=== PATIENT | female | born 1985 | race Asian ===

== ENCOUNTER 2023-03-22 23:02 | Emergency (ER) | payer MEDICAID, SELFPAY ==
[2023-03-22 23:03] VITALS: BP 124/68; PULSE 84; RESP 18; TEMP 36.6; O2SAT 96; BMI 26.5
[2023-03-22 23:40] LABS: IDNOW Serial# 6674DD1D; Strep A Nucleic Acid Negative (Negative)
[2023-03-23 00:11] LABS: Influenza A PCR POSITIVE (Negative); Influenza B PCR NEGATIVE (Negative); Resp Syncy Virus RNA Qual PCR NEGATIVE (Negative); SARS COV2 PCR INHOUSE NEGATIVE (Negative)
--- NOTE | 2023-03-23 01:10 | ED.GENADULT ---
HPI - General Adult General Chief complaint: Upper Respiratory Symptoms Stated complaint: Sore throat/Fever Time Seen by Provider: 03/23/23 01:04 Source: patient, RN notes reviewed and old records reviewed Mode of arrival: ambulatory Limitations: no limitations History of Present Illness HPI narrative: 37-year-old female presents for evaluation of a sore throat, body aches and cough. Patient reports her symptoms started 5 days ago on [place] Her son is here with similar symptoms Denies any other sick contacts or recent travel Related Data Allergies Allergy/AdvReac Type Severity Reaction Status Date / Time No Known Allergies Allergy Verified 03/22/23 23:08 [No Known Allergies*] Review of Systems Constitutional: Constitutional: Denies chills, Denies fever(s) and Reports malaise ENT: Reports sore throat Cardiovascular: Cardiovascular: Denies chest pain and Denies dyspnea Respiratory: Respiratory: Reports cough and Denies dyspnea Musculoskeletal: Musculoskeletal: Reports myalgias and Reports muscle weakness Integumentary/Breasts: Skin/Breast: Denies rash Physical Exam ED Vital Signs: Vital Signs - 24 hr 03/22/23 23:03 Temperature 97.8 F Pulse Rate 84 Respiratory Rate 18 Blood Pressure 124/68 Pulse Oximetry 96 Oxygen Delivery Method Room Air BMI result Body Mass Index 26.5 Const General: healthy appearing, comfortable, no acute distress, alert and awake Nutritional Appearance: well nourished Orientation/consciousness: patient oriented x3 HENMT Head: Yes normocephalic and Yes atraumatic Throat: Yes posterior oropharynx normal Eyes Eyelids: Yes eyelids normal Conjunctivae: conjunctivae normal Sclerae: sclerae normal Corneas: corneas normal Pupils: Equal, round and reactive pupils present EOM: EOMs intact bilaterally Neck Neck: Yes full ROM Resp Effort & Inspection: normal respiratory effort, able to speak in complete sentences and not labored Skin General skin exam: no rashes or lesions noted and elasticity normal Neuro General: patient oriented x3 Cranial nerves: Yes Equal, round and reactive pupils present and Yes Bilaterally intact EOM present Cognition (Neuro): normal cognition Extrem Other: Moving all extremities well without any obvious deformities Medical Decision Making Medical Decision Making MDM Narrative: 37-year-old healthy female presents for evaluation of flu-like symptoms. She has a sore throat, no evidence of peritonsillar abscess. She tested positive for influenza a, negative for strep throat. She is outside the window for Tamiflu treatment, we will treat symptomatically only Differential Diagnosis Differential Diagnoses: The differential diagnosis associated with the presentation includes Influenza Viral syndrome Strep throat Pharyngitis Lab Data Labs: Lab Results 03/22/23 Range/Units 23:23 Influenza Type A (PCR) POSITIVE A (Negative) Influenza Type B (PCR) NEGATIVE (Negative) RSV RNA Qual (PCR) NEGATIVE (Negative) SARS-CoV-2 RNA (RT-PCR) NEGATIVE (Negative) S. pyogenes GrpA DEBORAH Negative (Negative) Discharge Plan Discharge Clinical Impression: Influenza A Patient Disposition: Home, Self-Care Instructions: Influenza (ED) Additional Instructions: You tested positive for the flu. Unfortunately your outside of the window for antiviral treatment with Tamiflu Use Motrin and/or Tylenol for pain Drink lots of fluids Follow-up with your primary doctor Return for new or worsening symptoms Stand Alone Forms: Work/School Release
== END 2023-03-23 01:22 | disposition home or self-care (01) ==
PROVIDERS: Emergency Provider Internal Medicine
DX: J10.1 Influenza due to other identified influenza virus with other respiratory manifestations (principal); Z20.822 Contact with and (suspected) exposure to COVID-19; Z20.828 Contact with and (suspected) exposure to other viral communicable diseases
CPT/HCPCS: 0241U; 87651; 99282; 99283

== ENCOUNTER 2023-08-07 09:17 | Outpatient (AMB) | payer MEDICAID, SELFPAY ==
[2023-08-07 09:20] VITALS: BP 118/62; PULSE 60; O2SAT 98; BMI 27.0
--- NOTE | 2023-08-07 09:20 | A.OFFVIS_ITS ---
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 She has been getting chest pains off and on for quite sometime. Very brief duration. Can happen when she is lying down in bed extra. Stabbing sensation. No exertional patterns. No known cardiac history. Otherwise fairly healthy. Daughter has Brugada syndrome which was apparently diagnosed when she developed chest pain. She is being seen at [place]. Unknown Genetics. [facility] Family History Daughter Brugada syndrome Social History Alcohol intake: current Alcohol intake frequency: holidays/special occasions only Patient Tobacco Use Status: Never used Tobacco Review of Systems Const Denies weakness ENT Denies dizziness Card Denies chest pain, Denies chest pain with activity, Denies syncope, Denies rapid heart rate, Denies pedal edema, Denies edema, Denies leg edema, Denies lightheadedness, Denies palpitations, Denies dyspnea, Denies dyspnea on exertion and Denies orthopnea Resp Denies cough, Denies dyspnea and Denies dyspnea on exertion GI Denies hematochezia and Denies change in stool character Musc Denies abnormal gait, Denies muscle cramps, Denies muscle weakness, Denies numbness, Denies radiating pain into limb and Denies tingling Neuro Denies abnormal gait, Denies dizziness, Denies syncope, Denies numbness, Denies tingling and Denies weakness Endo Denies palpitations Physical Exam Vital Signs: Last Vital Signs Pulse 60 08/07/23 09:20 BP 118/62 08/07/23 09:20 Pulse Ox 98 08/07/23 09:20 Oxygen Delivery Method Room Air 08/07/23 09:20 BMI result Body Mass Index 27.0 Const General: comfortable and no acute distress Orientation/consciousness: patient oriented x3 HEENT Other: Unremarkable Head: Yes normal to inspection Neck Neck: Yes normal visual inspection Chest Chest palpation & inspection: normal inspection of the chest Resp Auscultation: clear to auscultation bilaterally Cardio Palpation: normal PMI Heart sounds: S1 normal heart sound present, S2 normal heart sound present, no gallops, no murmurs and no rubs GI Palpation (GI): Soft to palpation Back/Spine/Pelvis Other: unremarkable Skin General skin exam: no rashes or lesions noted Neuro General: patient oriented x3 Extrem General: Yes normal to inspection Psych Mental Status: mental status grossly normal Office Procedures EKG Details: EKG with sinus rhythm at 60/Min; sinus arrhythmias; no significant ST-T changes and otherwise unremarkable. [place] [id number], Complete Assessment & Plan Assessment & Plan (1) Precordial chest pain: Code(s): R07.2 - Precordial pain Category: Medical Plan Atypical sounding chest pain. Unremarkable resting EKG. Family history of Brugada syndrome and daughter. We will get an echocardiogram for cardiac function assessment. Ask patient to find out if Genetics was done in daughter and if anything positive. If that is positive, then patient may also need to be screened. Follow-up after the above. Orders: Orders CA echo transthoracic complete Today R07.2 - Precordial pain Coding Level of Care Code New Pt Level 3 (37822) Diagnoses Precordial chest pain R07.2 CPT Codes EKG - CPT: 62455-[id number], Complete ([id number])
== END 2023-08-07 09:45 | disposition home or self-care (01) ==
PROVIDERS: PCP Registered Nurse; Visit Provider Internal Medicine
DX: R07.2 Precordial pain (principal)
CPT/HCPCS: 93010; 99203

== ENCOUNTER → 2023-08-07 09:17 | Outpatient (BNVA) | payer MEDICAID, SELFPAY | PROVIDERS: Visit Provider Internal Medicine | DX: R07.2 Precordial pain (principal) | CPT/HCPCS: 93005; 99202 ==

== ENCOUNTER → 2023-08-31 08:28 | Outpatient (REF) | payer MEDICAID, SELFPAY ==
--- NOTE | 2023-08-31 08:32 | CA_ITS ---
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 The calculated ejection fraction is 67% by biplane method. - No obvious valvular pathology seen on this study. Findings Left Ventricle Normal left ventricular cavity size. There is normal left ventricular wall thickness. The left ventricular systolic function is normal. The calculated ejection fraction is 67% by biplane method. There is no evidence of regional wall motion abnormalities. Diastolic function is normal for age. LV peak 23.2%. Right Ventricle Normal right ventricular cavity size and systolic function. Atria Both atria are normal in size. Aortic Valve There is a normal trileaflet aortic valve. There is no aortic valve stenosis. There is no aortic valve regurgitation. Mitral Valve The mitral valve appears normal. There is no mitral valve regurgitation. There is no mitral valve stenosis. Pulmonic Valve The pulmonic valve is likely normal. Tricuspid Valve Normal tricuspid valve structure. There is trace tricuspid valve regurgitation. There is no evidence of pulmonary hypertension. Great Vessels The asc aorta is normal in size. Venous The inferior vena cava is normal in size and collapses greater than 50% with inspiration. Pericardium/Pleural There is no evidence of pericardial effusion. Prior Study Comparison No prior study available for comparison. Recommendations, Care & Conclusions No obvious valvular pathology seen on this study. Measurements 2D Linear Measurements IVSd: 0.71 0.6-0.9/0.6-1.0 cm LVIDd: 4.32 3.9-5.3/4.2-5.9 cm LVIDd Index: 2.59 2.4-3.2/2.2-3.1 cm/m2 LVIDs: 2.58 2.0-3.6 cm LVPWd: 0.83 0.7-1.1 cm LA Diam: 2.90 2.7-3.8/3.0-4.0 cm LAIDs Index: 1.74 1.5-2.3 cm/m2 LV Mass: 125.65 67-162/88-224 g LV Mass Index: 75.24 43-95/49-115 g/m2 LVOT Diam: 1.90 3.0+(-)1.3 cm 2D Systolic Function EF 4C: 68.60 >55% EF 2C: 64.30 >55% EF BiP: 66.90 >55% Mitral Valve MV Pk E: 0.74 MV PK A: 0.36 MV Decel Time: 258.00 E/A: 2.00 E'Lateral: 14.30 E'Medial: 11.60 E/E' Med: 6.40 E/E' Lat: 5.20 PHT: 76.00 MVA PHT: 2.89 Decel [place]: 2.86 Aortic Valve AoV Pk Seth: 1.33 AoV Mn Seth: 0.85 AoV VTI: 0.28 AoV Pk Grad: 7.00 Aov Mn Grad: 3.00 SANGEETHA Cont.VTI: 2.14 LVOT LVOT Pk Seth: 0.94 LVOT Mn Seth: 0.62 LVOT VTI: 0.21 LVOT Pk Grad: 4.00 LVOT Mn Grad: 2.00 LVOT Diam: 1.90 LVOT Area: 2.84 Diastolic Function MV Pk E: 0.74 MV Pk A: 0.36 E/A: 2.00 E'Medial: 11.60 E/E' Med: 6.40 E' Laterial: 14.30 E/E' Lat: 5.20 Right Ventricle TAPSE (mm): 22.70 TVS' Seth: 10.80 Tricuspid Valve RA Press: 3.00 Great Vessels Aorta Sinus of Valsalva: 2.38 2.0-3.5 cm Ao Asc: 2.50 2.1-3.4 cm Ao Arch: 2.10 Updated in Other Vendor System with Status of Final Roger Lee MD electronically signed on 09/02/2023 10:45:11 AM with status of Final
== END ==
LOC: HO.CARD 08:28
PROVIDERS: Visit Provider Internal Medicine
DX: R07.2 Precordial pain (principal)
CPT/HCPCS: 93306; 93356

== ENCOUNTER → 2023-08-31 08:32 | Outpatient (BNV) | payer MEDICAID, SELFPAY | PROVIDERS: Visit Provider Internal Medicine | DX: R07.2 Precordial pain (principal) | CPT/HCPCS: 93306 ==

== ENCOUNTER 2023-11-08 08:47 | Outpatient (AMB) | payer MEDICAID, SELFPAY ==
[2023-11-08 08:49] VITALS: BP 104/54; PULSE 70; BMI 28.2
--- NOTE | 2023-11-08 08:49 | MHC.OFFVIS ---
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 Recently seen in consultation regarding chest pains. Random chest pains but nonexertional. No specific patterns. Recently, somewhat improved spontaneously. Otherwise, quite healthy. Daughter has Brugada syndrome which was apparently diagnosed when she developed chest pain. She is being seen at [place]. Unknown Genetics. [facility] Family History Daughter Brugada syndrome Social History Alcohol intake: current Alcohol intake frequency: holidays/special occasions only Patient Tobacco Use Status: Never used Tobacco Review of Systems Const Denies chills, Denies fatigue, Denies fever(s), Denies weight gain and Denies weight loss ENT Denies dizziness Card Denies chest pain, Denies leg edema, Denies lightheadedness, Denies palpitations, Denies dyspnea on exertion, Denies orthopnea and Denies other Resp Denies cough and Denies dyspnea on exertion GI Denies hematochezia and Denies change in stool character Musc Denies abnormal gait, Denies muscle weakness, Denies numbness, Denies radiating pain into limb and Denies tingling Neuro Denies abnormal gait, Denies dizziness, Denies numbness and Denies tingling Endo Denies fatigue and Denies palpitations Physical Exam Vital Signs: Last Vital Signs Pulse 70 11/08/23 08:49 BP 104/54 L 11/08/23 08:49 BMI result Body Mass Index 28.2 Const General: comfortable and no acute distress Orientation/consciousness: patient oriented x3 HEENT Other: Unremarkable Head: Yes normal to inspection Neck Neck: Yes normal visual inspection Chest Chest palpation & inspection: normal inspection of the chest Resp Auscultation: clear to auscultation bilaterally Cardio Palpation: normal PMI Heart sounds: S1 normal heart sound present, S2 normal heart sound present, no gallops, no murmurs and no rubs GI Palpation (GI): Soft to palpation Back/Spine/Pelvis Other: unremarkable Skin General skin exam: no rashes or lesions noted Neuro General: patient oriented x3 Extrem General: Yes normal to inspection Psych Mental Status: mental status grossly normal Assessment & Plan Assessment & Plan (1) Precordial chest pain: Code(s): R07.2 - Precordial pain Category: Medical Plan Baseline EKGs within normal limits. Echocardiogram shows normal LVEF and no significant structural abnormalities. Normal peak global longitudinal strain. Discussed with regarding implications of family history of Brugada. As patient's EKG is completely normal, he felt there is no need for any further testing or other interventions. Reassurance only. Also unclear if Genetics will be of any help. Any case, advised patient to bring her daughter's genetic panel. If it is indeed positive for certain gene, then consider genetics referral. Coding Level of Care Code Est Pt Level 3 (46194) Diagnoses Precordial chest pain R07.2
== END 2023-11-08 09:58 | disposition home or self-care (01) ==
PROVIDERS: PCP Registered Nurse; Visit Provider Internal Medicine
DX: R07.2 Precordial pain (principal)
CPT/HCPCS: 99213

== ENCOUNTER → 2023-11-08 08:47 | Outpatient (BNVA) | payer MEDICAID, SELFPAY | PROVIDERS: PCP Registered Nurse; Visit Provider Internal Medicine | DX: R07.2 Precordial pain (principal) | CPT/HCPCS: 99212 ==

== ENCOUNTER 2023-12-28 09:00 | Outpatient (RCR) | payer MEDICAID, SELFPAY ==
--- NOTE | 2023-12-28 09:29 | MHC.OT.DC ---
[address] [phone] F: [phone] Occupational Therapy Discharge Note Patient Name: Vivian Antonio Provider: Krista Katz Diagnosis: (R)Lateral Epicondylitis Date of Surgery: Date of Evaluation: 10/13/23 Date of Discharge: Treatments to Date: 16 Cancellations to Date: No Shows to Date: Discharge Status: Achieved Goals Improved Function Independent with HEP Discharge Summary: Pt has achieved 6/7 goals in therapy and has reached a pain free state. Patient has become IND and consistent with HEP demonstrating a good understanding of program via teach back. Pt has reached optimal therapeutic potential and has been d/c today 12/28/23. Patient was a pleasure to work with, thank you for referral. Electronically Signed By: Kylie Brandt OT/s Reviewed/agree with student documentation: Yes Therapist: Debby Babb OTR/L, CLT Please Sign and return to therapist, thank you for your referral.
== END 2023-12-28 09:32 | disposition home or self-care (01) ==
LOC: HO.OT 09:00
PROVIDERS: PCP Registered Nurse; Visit Provider Registered Nurse
DX: M77.11 Lateral epicondylitis, right elbow (principal)
CPT/HCPCS: 97033; 97035; 97110; 97140; 97165; 97535; 97760

== ENCOUNTER 2024-06-26 10:46 | Outpatient (RCR) | payer OTHER, MEDICAID, SELFPAY | END 2024-07-05 11:19 | disposition home or self-care (01) | LOC: HO.PT 10:46 | PROVIDERS: Visit Provider Physician Assistant | DX: M54.2 Cervicalgia (principal) | CPT/HCPCS: 97110; 97140; 97161; 97530; 97535 ==